=== PATIENT | male | born 1965 | race Caucasian/White ===

== ENCOUNTER → 2016-11-30 | Day surgery (SDC) | payer BC ==
[2016-11-30] VITALS (8 sets, daily range): BP systolic 95–122; BP diastolic 58–74
[~2016-11-30] VITALS: Ht 175.3 cm; Wt 68.0 kg
[~2016-11-30] MED LIST: DiphenhydrAMINE 50mg/ml Inj IVP PRN; LR 1000ml 1,000 ML IVLG SCH; LR 1000ml ONE; Labetalol 5mg/ml 20ml vial IV PRN; Lidocaine 1% MPF 10mg/ml 5ml ONE; Propofol 10mg/ml 20ml IV ONE
--- NOTE | 2016-11-30 08:57 | Immediate Post-Op Evaluation ---
Immediate Post-Op Evalulation Immediate Post-Op Evalulation Procedure: Colonoscopy Date of Evaluation: Nov 30, 2016 Time of Evaluation: 09:52 IV Fluids: 400 Blood Products: 0 Estimated Blood Loss: 0 Urinary Output: 0 Blood Pressure Systolic: 95 Blood Pressure Diastolic: 70 Pulse Rate: 61 Respiratory Rate: 16 O2 Sat by Pulse Oximetry: 100 Temperature (Fahrenheit): 97.2 Pain Score (1-10): 0 Nausea: No Vomiting: No Complications 0 Patient Status: awake, reacts, patent, none Hydration Status: adequate Drug: N/A MARIANO ANDERSON M.D. Nov 30, 2016 08:57
--- NOTE | 2016-11-30 08:57 | Anethesia Preoperative Eval ---
Anesthesia Pre-op PMH/ROS General Date of Evaluation: Nov 30, 2016 Anesthesiologist: Kiel ASA Score: ASA 2 Mallampati Score Class I : Soft palate, uvula, fauces, pillars visible Class II: Soft palate, uvula, fauces visible Class III: Soft palate, base of uvula visible Class IV: Only hard plate visible Mallampati Classification: Class II Surgeon: Anni Diagnosis: Screening Surgical Procedure: Colonoscopy Anesthesia History: none Family History: no anesthesia problems Allergies: Coded Allergies: Crab (Verified Allergy, Severe, Rash, Hives, 11/30/16) METRONIDAZOLE (Verified Allergy, Severe, Rash, 11/30/16) Medications: see eMAR Past Medical History Cardiovascular: Denies: CAD, HTN, SC, arrhythmia, other, valve dz Pulmonary: Reports: asthma, Denies: COPD, CHRIS, other Gastrointestinal/Genitourinary: Reports: GERD, other - h/o gatric ulcer, Denies: CRI, ESRD Neurologic/Psychiatric: Denies: CVA, TIA, dementia, depression/anxiety, other Endocrine: Denies: DM, hypothyroidism, other, steroids HEENT: Denies: [place] (L), [place] (R), cataract (L), cataract (R), glaucoma, other Hematology/Immune: Denies: DVT, anemia, bleeding disorder, other Musculoskeletal/Integumentary: Denies: DDD, DJD, OA, RA, edema, other PSxH Narrative: lumbar discectomy, T&A Anesthesia Pre-op Phys. Exam Physician Exam Last Vital Signs Date Time Temp Pulse Resp B/P Pulse Ox O2 Delivery O2 Flow Rate FiO2 11/30/16 08:51 97.9 60 18 122/74 100 Room Air Constitutional: NAD Cardiovascular: RRR Respiratory: CTA Airway Exam Mallampati Score: Class II MO: full ROM: full Anesthesia Pre-op A/P Labs see chart Studies Pre-op Studies: EKG - sr Risk Assessment & Plan Assessment: ASA II Plan: MAC Status Change Before Surgery: No Pre-Antibiotics Drug: N/A MARIANO ANDERSON M.D. Nov 30, 2016 08:57
--- NOTE | 2016-11-30 08:58 | 48 Hour Post Anesthesia Eval ---
Post Anesthesia Evaluation Procedure: Colonoscopy Date of Evaluation: Nov 30, 2016 Blood Pressure Systolic: 99 0: 70 Pulse Rate: 59 Respiratory Rate: 19 O2 Sat by Pulse Oximetry: 100 Airway: patent Nausea: No Vomiting: No Pain Intensity: 0 Hydration Status: adequate Cardiopulmonary Status: at baseline Mental Status/LOC: patient returned to baseline Post-Anesthesia Complications: 0 Follow-up care needed: ready to discharge MARIANO ANDERSON M.D. Nov 30, 2016 08:58
--- NOTE | 2016-11-30 09:21 | Pre-Procedure Note/Attestation ---
Pre-Procedure Note/Attestation Complete Prior to Procedure Planned Procedure: not applicable Procedure Narrative: colonoscopy Indications for Procedure Pre-Operative Diagnosis: BRBPR Attestation I attest that I discussed the nature of the procedure; its benefits; risks and complications; and alternatives (and the risks and benefits of such alternatives ), prior to the procedure, with the patient (or the patient's legal sales representative [employer]). I attest that, if there was a reasonable possibility of needing a blood transfusion, the patient (or the patient's legal sales representative [employer]) was given the [facility] standardized written summary, pursuant to the Richard Pat Blood Safety Act ([place] Health and Safety Code # 1645, as amended). I attest that I re-evaluated the patient just prior to the surgery and that there has been no change in the patient's H&P, except as documented below: MARCY CHOI Nov 30, 2016 09:21
--- NOTE | 2016-11-30 09:21 | Short Stay Surgery H&P ---
History of Present Illness History of Present Illness Chief Complaint see H&P HPI Luis Kirkland is a 51 year old male who was admitted on for Melena Patient History Allergies: Coded Allergies: Crab (Verified Allergy, Severe, Rash, Hives, 11/30/16) METRONIDAZOLE (Verified Allergy, Severe, Rash, 11/30/16) PAST MEDICAL HISTORY: Past Surgeries: Social History: Physical Exam Vital Signs Last Vital Signs Date Time Temp Pulse Resp B/P Pulse Ox O2 Delivery O2 Flow Rate FiO2 11/30/16 08:51 97.9 60 18 122/74 100 Room Air Plan Attestation Are the patient's medical conditions optimized for surgery? MARCY CHOI Nov 30, 2016 09:21
--- NOTE | 2016-11-30 19:58 | Endoscopy Procedure Note ---
Endoscopy Procedure Note Indication for Procedure: GIB Procedures Performed: colonoscopy Operative Findings/Diagnosis: nl colon and TI Specimen: yes Pt Tolerated Procedure Well: Yes Estimated Blood Loss: none Anesthesiologist: see report Anesthesia: MAC Medication Given: see anesthesia record 50 yrs or older w/o bx or poly: Not Applicable 10yrs. F/U not recommended: Not Applicable If not recommended, why?: MARCY CHOI Nov 30, 2016 19:58
--- NOTE | 2016-11-30 19:59 | Brief Operative Note ---
Immediate Post Operative Note Operative Note Chief Complaint: BRB Pre-op Diagnosis: BRBPR Procedure: colon bx Post-op Diagnosis: nl Surgeon: joe Anesthesiologist: present Anesthesia: MAC Specimen: yes Complications: none Condition: stable Estimated Blood Loss: none Drains: none Implant(s) used?: No MARCY CHOI Nov 30, 2016 19:59
--- NOTE | 2016-11-30 22:58 | Operative Note - Dictated ---
DATE OF OPERATION: 11/30/2016 GASTROENTEROLOGY PROCEDURE REPORT PROCEDURE: Colonoscopy with biopsy. SURGEON: Anita Hutton M.D. ANESTHESIA: Please see the separate anesthesiologist's notes for details. PRE-ENDSCOPIC DIAGNOSES: 1. Hematochezia. 2. Mucoid stools. POST-ENDOSCOPIC DIAGNOSES: 1. Normal terminal ileum. 2. Normal colonic mucosa 3. Status post random biopsies of the right colon, left colon, and rectosigmoid colon. PROCEDURE: The procedure, its risks, indications, alternatives, and possible complications were explained and an informed consent was obtained. The colonoscope was introduced in the rectum after rectal exam was done and advanced to the terminal ileum. The colonoscope was then gradually withdrawn. The mucosa was examined carefully. No mucosal abnormalities were identified. Random biopsies of the right colon, left colon, and rectosigmoid colon were sent for pathology for review. The colonoscope was removed and the patient was sent to recovery in good condition. COMPLICATIONS: None. RECOMMENDATIONS: 1. Follow up biopsy results. 2. Outpatient followup. Anita Hutton M.D. DR: TEN JOB#: [id number] CC:
== END | disposition home or self-care (01) ==
LOC: GAS 08:09
DX: K92.1 Melena (principal); R19.5 Other fecal abnormalities; K21.9 Gastro-esophageal reflux disease without esophagitis; K44.9 Diaphragmatic hernia without obstruction or gangrene; E78.00 Pure hypercholesterolemia, unspecified; J45.909 Unspecified asthma, uncomplicated; M54.5 Low back pain; Z87.11 Personal history of peptic ulcer disease; Z86.19 Personal history of other infectious and parasitic diseases; Z88.3 Allergy status to other anti-infective agents; Z91.013 Allergy to seafood
CPT/HCPCS: 45380; J2704; J7120; 94003; 94150